=== PATIENT | male | born 1955 | race Caucasian/White ===

== ENCOUNTER 2017-04-25 17:10 | Emergency (ER) | payer OTHER ==
[~2017-04-25] VITALS: Ht 175.3 cm; Wt 136.0 kg
[~2017-04-25 17:10] MED LIST: AMLO-114 PO; ANDROGEL; CLX20 PO; HYDC25 PO; LISI-725 PO; OXYC-57 PO; PREG1CAP28 PO; SIMV20TA2 PO
[2017-04-25 17:15] VITALS: TEMP 36.6; Ht 175.3 cm; Wt 136.0 kg
[2017-04-25] MEDS ORDERED: XYLOCAINE 1%/SOD BICARB 20 ML VIAL INFIL ONE (17:30)
[2017-04-25] MEDS ORDERED: ATOR-22 PO (17:35)
[2017-04-25] MEDS ORDERED: HYDR25TA4 PO (17:35)
[2017-04-25] MEDS ORDERED: CITA20TA9 PO (17:35)
--- NOTE | 2017-04-25 17:35 | EMERGENCY ROOM VISIT NOTE ---
ED Visit Note First contact with patient: 17:20 I did evaluate and examine this patient myself. I did guide management for the patient. I agree with the APC's assessment as discussed. Please see the APC's dictation for further details. The patient has a superficial laceration to his scrotum. He denies any testicular pain and has no tenderness on exam. There is no swelling to his testicles scrotum. His laceration was repaired and he was given return precautions.
[2017-04-25] MEDS ORDERED: BUPRTAB PO (17:39)
[2017-04-25] MEDS ORDERED: LPT10 PO (17:39)
[2017-04-25] MEDS ORDERED: CITA40TA12 PO (17:39)
--- NOTE | 2017-04-25 18:43 | EMERGENCY ROOM VISIT NOTE ---
ED Visit Note First contact with patient: 17:19 CHIEF COMPLAINT: Scrotal laceration HISTORY OF PRESENT ILLNESS: Patient is a 62-year-old white male who presents emergency department for evaluation of a laceration to his scrotum that he sustained just prior to arrival. Patient relates that he was in the back of a pickup truck. He states that he got his pants caught on the bed liner and felt slightly, and the plastic edge of the bed liner caused a laceration to the left hemiscrotum. They applied cool compresses and water to the area. Bleeding has been controlled. His did hold some pressure. He notes only a slight burning sensation at the site of the laceration. He rates his discomfort a 5/ 10. REVIEW OF SYSTEMS: Review of systems as per HPI. All other systems reviewed were negative. At least 6 systems reviewed. PMH: Electronic medical records are reviewed and summarized as above/below. See Problem List. SOCIAL HISTORY: Patient living at home. Retired. PHYSICAL EXAM: Vital Signs: Reviewed Nurse's notes. There is a 2 cm long laceration on the left hemiscrotum. The edges are gaping apart. There is no foreign material in the wound and it looks clean. There is no active bleeding. Laceration is not full-thickness and does not extend completely into the scrotum. The testicle is nontender. No deep structures such as testicle or cord are visual. EMERGENCY DEPARTMENT COURSE: Using sterile technique, the wound was irrigated with saline and then cleaned with Betadine. Using 1% lidocaine anesthesia and sterile technique, the laceration was repaired with running subcuticular 4-0 Vicryl suture. Bacitracin was applied. Patient is encouraged to monitor for signs of infection. Medication reconciliation: I attest that I have personally reviewed the patient' s current medication list. Blood pressure screening: Patient was found to have an elevated blood pressure and was referred to their primary doctor for recheck and further treatment. The patient does have a history of hypertension and is treated. Problem List Medical Problems: (1) Depressive Disorder Nec Status: Chronic (2) Hyperlipidemia Nec/Nos Status: Chronic (3) Hypertension Nos Status: Chronic (4) Obesity, Nos Status: Chronic (5) Unspecified Sleep Apnea Status: Chronic Current/Historical Medications Scheduled Atorvastatin (Atorvastatin Calcium), 10 MG PO DAILY Bupropion Hcl (Wellbutrin Xl), 150 MG PO QAM Citalopram Hydrobromide (Celexa), 40 MG PO DAILY Hydrochlorothiazide (Hctz), 25 MG PO QAM Allergies Coded Allergies: No Known Allergies (Verified , 04/25/17) Vital Signs Date Time Temp Pulse Resp B/P (MAP) Pulse Ox O2 Delivery O2 Flow Rate FiO2 04/25/17 18:49 72 16 155/105 95 04/25/17 17:15 36.6 83 18 148/72 95 Room Air Departure Information Impression Primary Impression: Scrotal laceration Referrals Edgardo Banuelos D.O. (PCP) Patient Instructions [facility] Additional Instructions Keep wound clean and dry. Use an antibiotic ointment for 3-4 days, then let wound dry. Return sooner for any signs of infection (increasing redness, swelling, drainage). Ice and elevate for swelling and pain. Ibuprofen 600 mg and Tylenol 1000 mg every 6 hrs for pain.
[2017-04-25 18:49] VITALS: BP 155/105; PULSE 72; O2SAT 95
== END 2017-04-25 18:49 | disposition home or self-care (01) ==
LOC: C.EDB 17:11 → C.EDD 18:49
DX: S31.31XA Laceration without foreign body of scrotum and testes, initial encounter (principal); W45.8XXA Other foreign body or object entering through skin, initial encounter; F33.41 Major depressive disorder, recurrent, in partial remission; E78.5 Hyperlipidemia, unspecified; I10 Essential (primary) hypertension; E66.9 Obesity, unspecified; G47.30 Sleep apnea, unspecified